=== PATIENT | female | born 1960 | race Caucasian/White ===

== ENCOUNTER 2020-03-30 14:16 | Emergency (ER) | payer BC ==
[~2020-03-30] VITALS: Ht 165.1 cm; Wt 87.1 kg
[2020-03-30] MEDS ORDERED: ONDANSETRON HCL INJ 2MG/ML 2ML 2 MG/ML VIAL IV STA (14:26)
[2020-03-30] MEDS ORDERED: SODIUM CHLORIDE 0.9% 1000ML 1,000 ML IV SCH (14:30)
[2020-03-30] MEDS ORDERED: METOCLOPRAMIDE HCL 10 MG/2ML VIAL IV ONE (14:30)
[2020-03-30] MEDS ORDERED: DIPHENHYDRAMINE HCL INJ 50 MG/ML VIAL IV ONE (14:30)
[2020-03-30] MEDS ORDERED: METOCLOPRAMIDE HCL 10 MG/2ML VIAL ONE (14:50)
[2020-03-30] MEDS ORDERED: DIPHENHYDRAMINE HCL INJ 50 MG/ML VIAL ONE (14:50)
[2020-03-30] MEDS ORDERED: ONDANSETRON HCL INJ 2MG/ML 2ML 2 MG/ML VIAL ONE (14:50)
[2020-03-30] MEDS ORDERED: MORPHINE SULFATE INJ 4 MG/ML INJ 1ML IV STA (15:41)
[2020-03-30] MEDS ORDERED: MORPHINE SULFATE INJ 4 MG/ML INJ 1ML ONE (16:02)
[2020-03-30] MEDS ORDERED: ONDANSETRON HCL 4 MG ORAL DISINTEGRATING TAB ONE (16:09)
[2020-03-30] MEDS ORDERED: TETANUS/DIPHTHERIA TOX ADULT 0.5 ML SYR IM ONE (16:15)
[2020-03-30 16:28] VITALS: BP 171/77
[2020-03-30] MEDS ORDERED: ONDANSETRON HCL 4 MG ORAL DISINTEGRATING TAB PO ONE (16:30)
== END 2020-03-30 14:40 | disposition home or self-care (01) ==
LOC: FSED 14:30
DX: R51.9 Headache, unspecified (principal); R11.2 Nausea with vomiting, unspecified; I10 Essential (primary) hypertension
CPT/HCPCS: 70450; 80053; 85025; 99284; J1200; J2270; J2405; J2765; J7030; Q0162